=== PATIENT | female | born 1995 | race Caucasian/White ===

== ENCOUNTER 2019-11-23 13:05 | Emergency (ER) | payer SELFPAY ==
[~2019-11-23] VITALS: Ht 177.8 cm; Wt 79.8 kg
[2019-11-23 13:13] VITALS: BP 146/108
[2019-11-23] MEDS ORDERED: KETOROLAC 30 MG/ML VIAL IM ONE (13:30)
[2019-11-23 14:28] VITALS: BP 146/108
== END 2019-11-23 14:28 | disposition home or self-care (01) ==
LOC: MED 13:05
DX: S09.90XA Unspecified injury of head, initial encounter (principal); R51 Headache; X58.XXXA Exposure to other specified factors, initial encounter; Y93.89 Activity, other specified; Y92.89 Other specified places as the place of occurrence of the external cause; Y99.8 Other external cause status
CPT/HCPCS: 70450; 81025; 96372; 99284; J1885

== ENCOUNTER 2020-01-15 09:20 | Emergency (ER) | payer OTHER ==
[~2020-01-15] VITALS: Ht 177.8 cm; Wt 77.1 kg
[2020-01-15 09:24] VITALS: BP 125/88
--- NOTE | 2020-01-15 09:24 | NUR ---
Patient ambulated to bed 7. RN evaluating patient at bedside.
--- NOTE | 2020-01-15 09:27 | NUR ---
Dr. Riggs is evaluating the patient at bedside.
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
[2020-01-15] MEDS ORDERED: HYDROcodone/APAP 5/325 MG 1 TAB TAB PO ONE (09:30)
[2020-01-15] MEDS ORDERED: ONDANSETRON 4 MG ODT PO ONE (09:30)
--- NOTE | 2020-01-15 09:31 | NUR ---
X-Ray at bedside.
[2020-01-15 10:02] VITALS: BP 125/88
--- NOTE | 2020-01-15 10:03 | NUR ---
Patient discharged with v/s stable. Written and verbal after care instructions given and explained. Patient alert, oriented and verbalized understanding of instructions. Ambulatory with steady gait. All questions addressed prior to discharge. ID band removed. Patient advised to follow up with PMD. Rx of percocet 5mg/325mg and zofran 4mg given. Patient educated on indication of medication including possible reaction and side effects. Opportunity to ask questions provided and answered.
== END 2020-01-15 10:03 | disposition home or self-care (01) ==
LOC: MED 09:20
DX: S42.002A Fracture of unspecified part of left clavicle, initial encounter for closed fracture (principal); W03.XXXA Other fall on same level due to collision with another person, initial encounter; Y93.89 Activity, other specified; Y92.89 Other specified places as the place of occurrence of the external cause; Y99.8 Other external cause status
CPT/HCPCS: 73030; 99283; Q0162